=== PATIENT | female | born 1995 | race Two or more races ===

== ENCOUNTER 2021-04-11 23:08 | Emergency (ER) | payer BC ==
[~2021-04-11] VITALS: Ht 160 cm; Wt 60.0 kg
[2021-04-12 00:37] LABS: CLARITY URINE CLEAR (CLEAR); COLOR URINE YELLOW (YELLOW); KETONES URINE TRACE (NEGATIVE); LEUKOCYTE ESTERASE URINE 2+ (NEGATIVE); NITRITE URINE NEGATIVE (NEGATIVE); OCCULT BLOOD URINE NEGATIVE (NEGATIVE); PROTEIN URINE NEGATIVE (NEGATIVE); SPECIFIC GRAVITY URINE 1.011 (1.005-1.030); UROBILINOGEN URINE 0.2 E.U./dL (0.2-1.0)
[2021-04-12] MEDS ORDERED: ACETAMINOPHEN 325MG TABLET PO ONE (00:45)
[2021-04-12 00:52] LABS: BASOPHILS % 0.4 % (0.0-2.0); HEMATOCRIT. 39.9 % (36.0-48.0); HEMOGLOBIN. 13.6 g/dL (12.0-16.0); LYMPHOCYTES % 16.8 % (20.0-50.0); MEAN CORPUSCULAR HEMOGLOBIN 30.4 pg (28.0-32.0); MEAN CORPUSCULAR VOLUME 89.6 fL (81.0-99.0); MEAN PLATELET VOLUME 6.8 fl (7.4-10.4); MONOCYTES % 10.1 % (2.0-8.0); NEUTROPHILS % 71.7 % (40.0-76.0); PLATELET 270 x1000/uL (130-400); RED BLOOD CELL COUNT 4.46 mill/uL (4.2-5.4); RED CELL DISTRIBUTION WIDTH 13.1 % (11.6-14.6)
[2021-04-12 01:03] LABS: CHLORIDE 109 mEq/L (98-107)
[2021-04-12 01:30] VITALS: BP 134/87
[2021-04-12] MEDS ORDERED: IBUP-2029 MT (01:32)
== END 2021-04-12 01:45 | disposition home or self-care (01) ==
LOC: ER 23:08
DX: R07.89 Other chest pain (principal); I10 Essential (primary) hypertension; E78.00 Pure hypercholesterolemia, unspecified
CPT/HCPCS: 36415; 71045; 80053; 81003; 81025; 85025; 85379; 93005; 99285